=== PATIENT | female | born 1990 | race Caucasian/White ===

== ENCOUNTER 2018-04-09 06:50 | Inpatient (IN) | payer OTHER, MEDICAID, SELFPAY ==
--- NOTE | 2018-04-09 07:22 | P.HPOB_ITS ---
OB HPI Date/Time Date of admission: 04/09/18 Date Patient Seen: 04/09/18 Time Patient Seen: 07:19 History of Present Illness Chief complaint: OBS : 5 Para: 2 Estimated Date of Delivery: 04/13/18 Estimated Gestational Age (weeks): 39w3d Narrative: Edith Alonzo is a 27 year old female 5 para 2 here for induction for maternal discomfort at 39 weeks 3 days Indications Indication for induction OB: maternal discomfort History of Present care: good care Dating criteria: LMP confirmed by 1st trimester US Ultrasounds: normal mid trimester US Obstetrical complications: none and growth restriction Medical complications: psychiatric (Depression) Preadmission Labs Blood type: O (+) positive -: GBS status: positive Evaluation Evaluation Baseline heart rate: 120 Variability: Moderate (11-25) monitor accelerations: Present monitor decelerations: Absent Cervical dilation (cm): 3 Cervical effacement (%): 80 station: 0 PFSH Medical History Depression (Acute) Social History Smoking Status: Former smoker Meds Home Medications Medication Instructions Recorded Confirmed Type omeprazole 20 mg capsule,delayed 20 mg PO BID #60 cap 03/17/18 04/09/18 Rx release citalopram PO QAM 03/29/18 History ondansetron 4 mg disintegrating 4 mg PO Q6H PRN #30 tab 04/06/18 04/09/18 Rx tablet Allergies Allergy/AdvReac Type Severity Reaction Status Date / Time No Known Drug Allergies Allergy Verified 04/09/18 08:31 Review of Systems Review of Systems All systems reviewed & are unremarkable except as noted in HPI and below Exam Vital Signs (past 8 hours): BP 113/68 P80 T35.8 Narrative Exam Narrative: HEENT exam within normal limits. No thyromegaly. Lungs are clear to auscultation and percussion. Heart is regular rate and rhythm no S3- S4 or murmurs. Abdomen is soft, nontender, gravid. Extremities without edema nontender Objective Labs Result Diagrams: 04/09/18 08:05 Assessment and Plan (1) 39 weeks gestation of : Current visit: Yes Status: Acute Patient admitted for Pitocin induction for maternal discomfort at 39 and half weeks gestation. Patient is positive group B strep cultures so will receive IV penicillin. Patient requests epidural catheter for pain control.
[2018-04-09 08:25] LABS: Add Manual Diff / Slide Review NO; Eosinophils Percent Auto 1.2 % (2-4); Hematocrit 35.6 % (36-46); Hemoglobin 11.9 g/dL (12.0-16.0); Lymphocytes Percent Auto 20.6 % (25-40); Mean Corpuscular HGB Conc 33.4 % (30-36); Mean Corpuscular Hemoglobin 28.7 PG (26-34); Mean Corpuscular Volume 86.1 fL (80-100); Monocytes Percent Auto 9.9 % (3-14); Neutrophils Absolute Auto 7900 /uL (3000-5900); Neutrophils Percent Auto 67.3 % (50-75); Platelet Count 243 X10^3/uL (150-400); Red Blood Cell Count 4.13 X10^6/uL (4.0-5.2); Red Cell Distribution Width 14.5 % (11.6-14.8); White Blood Cell Count 11.7 X10^3/uL (4.5-11.0)
[2018-04-09] MEDS: PENICILLIN G POTASSIUM 5,000,000 UNIT in DEXTROSE 5% IN WATER 250 ML IV (08:30)
[2018-04-09] MEDS: LACTATED RINGERS 1,000 ML 125 ML IV ×2 (08:30→14:09)
[2018-04-09 08:34] VITALS: BP 113/68
[2018-04-09] MEDS: OXYTOCIN PREMIX 30 UNIT/500 ML PLAST..BAG IV (09:10)
[2018-04-09 09:17] LABS: Rubella Antibody IgG 9.5 IU/mL (>15)
[2018-04-09] MEDS: PENICILLIN G POTASSIUM 3,000,000 UNIT/50 ML FROZ.PIGGY 100 UNIT IV (12:28)
--- NOTE | 2018-04-09 16:06 | PM.OBPRVD ---
Delivery date: 04/09/18 Intrapartal events: None Induction method: per pitocin protocol Delivery augmentation: rupture of membranes Delivery monitor: external FHT Route of delivery: Laceration description: None Estimated blood loss (mL): 150 Anesthesia type: Epidural Complications: None Narrative: Patient requested induction at 39 and half weeks due to maternal discomfort. She arrived on Labor and delivery and was begun on Pitocin. She received IV penicillin for positive group B strep culture. She received an epidural catheter for pain control. heart tones remained reassuring throughout labor. Patient was a round for clear fluid. She progressed normally and delivered spontaneously over an intact perineum. The viable male so was placed on maternal abdomen and the cord was clamped after the cord stopped pulsating. The male weighed 8 lb, 3642 g with Apgars of 7 and 9. Placenta delivered spontaneously, intact, with 3 vessels. There were no vaginal perineal or cervical tears. Both infant mother doing well.
[2018-04-10] MEDS: IBUPROFEN 600 MG TABLET PO ×3 (00:23→13:21)
[2018-04-10 08:27] LABS: Hematocrit 35.3 % (36-46); Hemoglobin 11.8 g/dL (12.0-16.0)
--- NOTE | 2018-04-10 11:05 | PM.OBDS.1 ---
Discharge Providers Date of admission: 04/09/18 06:50 Primary care physician: Barbie Muro MD Consults: 04/09/18 18:05 Consult to Entry Level Manufacturing Engineer Routine Comment: Discharge provider: Barbie Muro MD Discharge Date: 04/10/18 Summary Date Patient Seen: 04/10/18 Time Patient Seen: 11:12 Peripartum Data Infant Delivery Method: Natural Vaginal Laceration description: None complications: none Gravity 1: Gender: Male Disposition of : home Discharge Diagnosis (1) 39 weeks gestation of : Status: Acute (2) Spontaneous vaginal delivery: Status: Acute (3) Depression: Status: Chronic Status at Discharge Cognitive/behavioral status at discharge: Patient is stable but wishes to increase her Celexa Functional status at discharge: independent ambulation Overall status at discharge: patient is progressing back to baseline Time Spent with Patient Total time spent providing and/or coordinating discharge services: Less than 30 minutes Objective Labs Result Diagrams: 04/10/18 08:15 Labs: Laboratory Results - last 24 hr 04/10/18 08:15 Hgb 11.8 L Hct 35.3 L Discharge Plan Discharge Plan Patient Disposition: Home, Self-Care Discharge Med Rec/Prescriptions Prescriptions: New ondansetron 4 mg Tablet,Disintegrating 4 mg PO Q6H PRN (Reason: nausea and vomiting) Qty: 20 RF: 1 citalopram 40 mg tablet 40 mg PO DAILY Qty: 30 RF: 6 Continue omeprazole 20 mg capsule,delayed release(DR/EC) 20 mg PO BID Qty: 60 RF: 0 Discontinued citalopram 20 mg tablet 1 tab PO QAM RF: 0 ondansetron 4 mg tablet,disintegrating 4 mg PO Q6H PRN (Reason: nausea and vomiting) Qty: 30 RF: 0 Follow up/Referrals: Barbie Muro MD [Primary Care Provider] - 1 Month Provider Discharge Instructions Diet: Regular Wound Care Report to your healthcare provider any signs of infection, such as:: chills, fever and increased pain Discharge Data Primary Care Provider: Barbie Muro Attending Provider: Barbie Muro Admit Date/Time: 04/09/18 06:50
[2018-04-10] MEDS: CITALOPRAM 20 MG TABLET PO (11:56)
[2018-04-10] MEDS: ACETAMINOPHEN 325 MG TABLET 650 MG PO (12:00)
[2018-04-10 13:32] VITALS: BP 104/69; PULSE 71; RESP 16; TEMP 36.5
[2018-04-10] MEDS: MEASLES,MUMPS,RUBELLA VACC/PF 0.5 ML VIAL SUBCUT (16:22)
[2018-04-12 13:02] LABS: HIV 1 2 Ag Ab 4th Gen w Rflxs Nonreactive (Nonreactive)
[2018-04-13 15:13] LABS: Hepatitis B Surf Ab Qualitativ Nonreactive (Nonreactive)
== END 2018-04-10 16:45 | disposition home or self-care (01) | DRG 775 ==
PROVIDERS: Admitting Provider Specialist; PCP Specialist; Visit Provider Specialist
DX: O26.813 Pregnancy related exhaustion and fatigue, third trimester (principal); Z3A.39 39 weeks gestation of pregnancy; Z37.0 Single live birth; O99.824 Streptococcus B carrier state complicating childbirth; O99.89 Other specified diseases and conditions complicating pregnancy, childbirth and the puerperium; F32.9 Major depressive disorder, single episode, unspecified
CPT/HCPCS: 01967; 36415; 59050; 59409; 85014; 85018; 85025; 86703; 86706; 86762; 86850; 86900; 86901; G0379; J2540; J2590; J3010